=== PATIENT | female | born 1965 | race African-American/Black ===

== ENCOUNTER 2017-03-04 10:58 | Emergency (ER) | payer SELFPAY ==
[~2017-03-04] VITALS: Ht 170.2 cm; Wt 110.0 kg
[2017-03-04 10:59] VITALS: BP 184/98; PULSE 82; RESP 16; TEMP 98.2; O2SAT 98
[2017-03-04] MEDS ORDERED: NIFE10CA PO ×2 (11:51→13:21)
[2017-03-04 12:00] VITALS: BP_SYST 134; BP_SYST 158; BP_DIAS 97; BP_DIAS 99
--- NOTE | 2017-03-04 12:00 | PD ---
HPI Chief Complaint: Fall Time Seen by Provider: 12:00 Travel History International Travel<30 days: Yes Contact w/Intl Traveler<30days: Yes Name of Country Traveled to: [place] Traveled to known affect area: No History of Present Illness HPI 51-year-old female came to the emergency room with multiple unrelated complaint including hypertension, left knee pain after a fall primarily due to slipping 4 days ago, vague abdominal pain. Currently her blood pressure in the room was within acceptable range. Patient walked to the emergency room. She says she is not from here and does not have a primary care here. She is on nifedipine and ran out of her medications one month ago. [facility] Past Medical History Narrative Medical List of her past medical, surgical, social history is reviewed from the nursing note. Cardiovascular Problems: Yes (HTN) Diminished Hearing: No Hypertension: Yes Influenza Vaccination: No ?: Not Ovarian Cysts: Yes Past Surgical History Surgical History: No Previous Surgery Social History Alcohol Use: No Tobacco Use: No Substance Use: No Allergies-Medications (Allergen,Severity, Reaction): Coded Allergies: No Known Allergies (Unverified , 03/04/17) Comments No known drug allergies. Reported Meds & Prescriptions Reported Meds & Active Scripts Active Nifedipine 10 Mg Cap 10 Mg PO BID Reported Nifedipine 10 Mg Cap 10 Mg PO BIDPC Narrative Medication List of her home medications reviewed from the nursing note. Review of Systems Except as stated in HPI: all other systems reviewed are Neg Physical Exam Narrative GENERAL: Awake, alert, obese, no obvious distress SKIN: Focused skin assessment warm/dry. HEAD: Atraumatic. Normocephalic. EYES: Pupils equal and round. No scleral icterus. No injection or drainage. ENT: No nasal bleeding or discharge. Mucous membranes pink and moist. NECK: Trachea midline. No JVD. CARDIOVASCULAR: Regular rate and rhythm. No murmur appreciated. RESPIRATORY: No accessory muscle use. Clear to auscultation. Breath sounds equal bilaterally. GASTROINTESTINAL: Abdomen soft, non-tender, nondistended. Hepatic and splenic margins not palpable. MUSCULOSKELETAL: No obvious deformities. No clubbing. No cyanosis. No edema. NEUROLOGICAL: Awake and alert. No obvious cranial nerve deficits. Motor grossly within normal limits. Normal speech. PSYCHIATRIC: Appropriate mood and affect; insight and judgment normal. Data Data Last Documented VS Orders Knee, Complete (4vws) (03/04/17 ) [facility] Medical Decision Making Medical Screen Exam Complete: Yes Emergency Medical Condition: Yes Medical Record Reviewed: Yes Differential Diagnosis Muscle strain, essential hypertension, knee fracture Narrative Course 1:19 PM x-ray shows some arthritis but otherwise within normal limits. Will be discharged home with a prescription. Procedures EKG Prior to Arrival: No Diagnosis Primary Impression: Knee contusion Qualified Code: S80.02XA - Contusion of left knee, initial encounter Additional Impressions: Essential hypertension Noncompliance with medication regimen Referrals: Primary Care Physician Additional Instructions: Please fill the blood pressure medication prescription that he had been given and start taking it again supposed to. Please follow-up with your primary care as emergency room is not the ideal place to get medication refills. Med/Other Pt SpecificInfo: Prescription(s) given Scripts Nifedipine 10 Mg Cap10 Mg PO BID #60 CAP Ref 0 Prov:Yovany Almeida MD 03/04/17 Disposition: 01 DISCHARGE HOME Condition: Stable Yovany Almeida MD Mar 04, 2017 12:00 Additional Instructions: Please fill the blood pressure medication prescription that he had been given and start taking it again supposed to. Please follow-up with your primary care as emergency room is not the ideal place to get medication refills. Med/Other Pt SpecificInfo: Prescription(s) given Scripts Nifedipine 10 Mg Cap10 Mg PO BID #60 CAP Ref 0 Prov:Yovany Almeida MD 03/04/17 Disposition: 01 DISCHARGE HOME Condition: Stable Yovany Almeida MD Mar 04, 2017 12:00
--- NOTE | 2017-03-04 12:36 | RADRPT ---
EXAM DATE/TIME: 03/04/2017 12:19 [facility] COMPARISON: No previous studies available for comparison. INDICATIONS : Fell on knee x5 days ago, pain, dificult to weight bear, dificult to bend. MEDICAL HISTORY : None. SURGICAL HISTORY : None. ENCOUNTER: Initial ACUITY: 4 - 6 days PAIN SCORE: 8/10 LOCATION: Left knee. FINDINGS: Four view examination of the left knee demonstrates no evidence of fracture or dislocation. Bony min eralization is normal. The articular surfaces are intact. The suprapatellar soft tissues have a nor mal configuration. Moderate osteoarthritic change CONCLUSION: Moderate osteoarthritis with osteophytes involving both the medial and the patellofemoral compartment sCarl Blanco MD on March 04, 2017 at 12:34 Board Certified Radiologist. This report was verified electronically.
== END 2017-03-04 15:12 | disposition home or self-care (01) ==
LOC: NEPD 10:58
DX: S80.02XA Contusion of left knee, initial encounter (principal); I10 Essential (primary) hypertension; W01.0XXA Fall on same level from slipping, tripping and stumbling without subsequent striking against object, initial encounter; Z91.14 Patient's other noncompliance with medication regimen
CPT/HCPCS: 73564; 99283